=== PATIENT | female | born 1975 | race Two or more races ===

== ENCOUNTER 2017-07-26 06:03 | Inpatient (IN) | payer OTHER ==
[~2017-07-26] VITALS: Ht 147.3 cm; Wt 68.0 kg
[2017-07-26 09:00] VITALS: BP 134/74
[2017-07-26] MEDS ORDERED: BENA20TA2 PO (09:51)
[2017-07-26] MEDS ORDERED: OMEP40CA37 PO (09:51)
--- NOTE | 2017-07-26 10:00 | NUR ---
DIRECTOR OF MECHANICAL ENGINEERING NOTES PT DIRECT ADMIT FROM AMES. PT IS ALERT AND ORIENTED X3. PT WAS ADMITTED FOR CHEST PAIN. NORMAL SINUS RHYTHM. PATIENT IS ON ROOM AIR WITH 100% OXYGEN SATURATION. BEDSIDE RAILS ARE UP X2. BED IS LOCKED AND LOWERED. WILL CONTINUE TO MONITOR.
[2017-07-26 16:00] VITALS: BP 114/72
--- NOTE | 2017-07-26 18:27 | NUR ---
INTERNATIONAL BANK MANAGER CLOSING NOTES PATIENT IS EATING DINNER IN BED. PATIENT IS IN NO DISTRESS. PATIENT IS ALERT AND ORIENTED. BEDSIDE RAILS ARE UP X2. BED IS LOCKED AND LOWERED. WILL ENDORSE CARE TO PARK MAINTENANCE TECHNICIAN NURSE FOR [facility].
--- NOTE | 2017-07-26 19:30 | NUR ---
MS RN NOTES RECEIVED ON BED A/O X4,BREATHING REGULAR,NOT IN ANY FORM OF DISTRESS,SALINE LOC RIGHT AND LEFT AC INTACT AND PATENT.DENIES CHEST PAIN AT THE MOMENT.CALL LIGHT IN REACH,NEEDS ANTICIPATED.
[2017-07-26 20:00] VITALS: BP 120/77
--- NOTE | 2017-07-27 07:34 | NUR ---
MS RN NOTES SLEPT WELL,DENIES CHEST PAIN THRU OUT SHIFT.POSSIBLE D/C TODAY.ENDORSED.
--- NOTE | 2017-07-27 07:39 | NUR ---
MS/RN OPENING NOTE PATIENT RECEIVED IN BED IN STABLE CONDITION. A/O X 4. ABLE TO MAKE DECISIONS AND NEEDS KNOWN. NO SIGNS OF ACUTE DISTRESS. NO COMPLAIN OF PAIN OR DISCOMFORT. ALL NEEDS ATTENDED TO. CALL LIGHT WITHIN REACH. WILL CONTINUE TO MONITOR TO ENSURE SAFETY.
[2017-07-27 07:57] LABS: BASOPHILS % (AUTO) 0.7 % (0.0-2.0); EOSINOPHILS # (AUTO) 0.1 /CMM (0.0-0.7); HEMATOCRIT 40 % (33-45); HEMOGLOBIN 13.7 g/dL (11.5-14.8); LYMPHOCYTES # (AUTO) 1.5 /CMM (0.8-4.8); MEAN CORPUSCULAR HEMOGLOBIN 27 PG (26.0-33.0); MEAN CORPUSCULAR HGB CONC 34 g/dl (31.0-36.0); MEAN CORPUSCULAR VOLUME 79 fL (82-100); MONOCYTES # (AUTO) 0.6 /CMM (0.1-1.30); NEUTROPHILS # (AUTO) 3.9 /CMM (1.8-8.9); NEUTROPHILS % (AUTO) 63.3 % (43.0-81.0); PLATELET COUNT (AUTO) 289 /CMM (150-450); RDW COEFFICIENT OF VARIATION 14.1 (11.5-15.0); WHITE BLOOD COUNT (AUTO) 6.2 K/uL (4.3-11.0)
[2017-07-27 08:00] VITALS: BP 135/83
[2017-07-27 08:21] VITALS: BP 135/83
[2017-07-27 08:29] LABS: ALBUMIN 3.5 g/dL (3.4-5.0); BILIRUBIN,TOTAL 0.5 mg/dL (0.2-1.0); CALCIUM, SERUM 8.5 mg/dL (8.5-10.1); CREATININE 0.6 mg/dL (0.6-1.3); MAGNESIUM 2.2 mg/dL (1.8-2.4); PHOSPHORUS 3.3 mg/dL (2.5-4.9); THYROID STIMULATING HORMONE 1.948 uIU/mL (0.358-3.74); TOTAL PROTEIN, SERUM 7.1 g/dL (6.4-8.2)
--- NOTE | 2017-07-27 13:33 | NUR ---
MS/RN SEEN BY TRIPP DE GUZMAN PATIENT SEEN BY JESSICA DE GUZMAN WITH ORDERS TO DISCHARGE.
--- NOTE | 2017-07-27 15:11 | NUR ---
MS/BONE PROCESS OPERATOR PATIENT DISCHARGE HOME IN STABLE CONDITION. A/O X 4. NO SIGNS OF ACUTE DISTRESS. NO COMPLAIN OF PAIN OR DISCOMFORT. DISCHARGE INSTRUCTIONS AND TEACHINGS PROVIDED TO PATIENT. PATIENT VERBALIZED UNDERSTANDING OF DISCHARGE TEACHINGS. ALSO MADE AWARE TO FOLLOW UP WITH PRIMARY PHYSICIAN WITHIN 1 WEEK. ALL NEEDS ATTENDED TO. NAME AND ID BAND REMOVED. LEFT VIA PRIVATE CAR.
== END 2017-07-27 15:00 | disposition home or self-care (01) | DRG 203 ==
LOC: TELE 08:39 → MED 20:45
PROVIDERS: ADMIT Nurse Practitioner Acute Care; ATTEND Nurse Practitioner Acute Care
DX: M94.0 Chondrocostal junction syndrome [Tietze] (principal); I10 Essential (primary) hypertension; R07.81 Pleurodynia; K29.70 Gastritis, unspecified, without bleeding; Z83.3 Family history of diabetes mellitus
CPT/HCPCS: 36415; 80053-TC; 80061-TC; 83735-TC; 84100-TC; 84443-TC; 84484-TC; 85025-TC; 87081-TC; 93307-TC; J1650; J2270; Z7610